=== PATIENT | female | born 1960 | race Caucasian/White ===

== ENCOUNTER 2025-06-29 14:27 | Emergency (ER) | payer OTHER ==
[~2025-06-29] VITALS: Ht 170.2 cm; Wt 75.0 kg
--- NOTE | 2025-06-29 14:34 | ECG ---
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
--- NOTE | 2025-06-29 15:19 | ED.PDOC ---
History of Present Illness HPI Comments This is a 64-year-old female with past medical history of hypothyroidism (Chay's) stroke (per patient, has been during partial hysterectomy, with no current residual deficits) brought to the hospital by EMS due to left shoulder pain started 6 hours back. Pain is localized at the back of left shoulder, radiating to the left side of chest, describes a sharp pain, 7/10 in intensity which worsened with taking deep breaths and moving her shoulder. She also reports of left arm numbness, dizziness and mild headache. She denies fever, shortness of breath, headache, blurry vision, or any recent trauma or sick contact. Social history: Denies alcohol or any other drug use Home medication: Levothyroxine 100 mEq Allergic history: Codeine, gadolinium and penicillins Chief Complaint: Chest Pain Time Seen by MD: 14:40 Reviewed Notes: Nurses Notes Allergies: Coded Allergies: Codeine (Verified Allergy, Unknown, 06/29/25) Gadolinium (Verified Allergy, Unknown, 06/29/25) Penicillins (Verified Allergy, Unknown, 06/29/25) Information Source: Patient Mode of Arrival: EMS Timing: Hours Duration: Since onset Past Medical History PAST MEDICAL HISTORY: CVA, Thyroid Surgical History: Surgical History (Other): Hysterectomy Family History Family History: Reviewed,noncontributory to illness, No family hx of Cancer, No family hx of DM, No family hx of Heart braeden, No family hx of HTN, No family hx ofKidney braeden, No family hx of Liver braeden, No family hx of Lung braeden, No family hx of Stroke Social History Smoker: Non-Smoker Alcohol: Denies ETOH Use Drugs: Denies Drug Use Constitutional: denies: chills, diaphoresis, fatigue, fever, malaise, sweats, weakness, others EENTM: denies: blurred vision, double vision, ear bleeding, ear discharge, ear drainage, ear pain, ear ringing, eye pain, eye redness, hearing loss, mouth pain, mouth swelling, nasal discharge, nose bleeding, nose congestion, nose pain, photophobia, tearing, throat pain, throat swelling, voice changes, others Respiratory: denies: cough, hemoptysis, orthopnea, SOB at rest, shortness of breath, SOB with excertion, stridor, wheezing, others Cardiovascular: reports: chest pain Gastrointestinal: denies: abdomen distended, abdominal pain, blood streaked bowels, constipated, diarrhea, dysphagia, difficulty swallowing, hematemesis, melena, nausea, poor appetite, poor fluid intake, rectal bleeding, rectal pain, vomiting, others Genitourinary: denies: abnormal vagina bleeding, burning, dyspareunia, dysuria, flank pain, frequency, hematuria, incontinence, pain, , vagina discharge, urgency, others Neurological: reports: dizziness; denies: fainting, headache, left sided numbness, left sided weakness, numbness, paresthesia, pre-existing deficit, right sided numbness, right sided weakness, seizure, speech problems, tingling, tremors, weakness, others Integumetry: denies: bruises, change in color, change in hair/nails, dryness, laceration, lesions, lumps, rash, wounds, others Allergic/Immunocompromised: denies: Difficulty Healing, Frequent Infections, Hives, Itching, others Hematologic/Lymphatic: denies: anemia, blood clots, easy bleeding, easy bruising, swollen glands, others Endocrine: denies: excessive hunger, excessive sweating, excessive thirst, excessive urination, flushing, intolerance to cold, intolerance to heat, unexplained weight gain, unexplained weight loss, others Psychiatric: denies: anxiety, bipolar disorder, depression, hopeless, panic disorder, schizophrenia, sleepless, suicidal, others Physical Exam General Appearance: No Apparent Distress, Normal HEENT: Normal ENT Inspection, Pharynx Normal, TMs Normal Neck: Full Range of Motion, Non-Tender, Normal, Normal Inspection Respiratory: Chest Non-Tender, Lungs Clear, No Accessory Muscle Use, No Respiratory Distress, Normal Breath Sounds Cardiovascular: No Edema, No JVD, No Murmur, No Gallop, Normal Peripheral Pulses, Regular Rate/Rhythm Breast Exam: Deferred Gastrointestinal: No Organomegaly, Non Tender, No Pulsatile Mass, Normal Bowel Sounds, Soft Genitalia: Deferred Pelvic: Deferred Rectal: Deferred Extremities: No calf tenderness, Normal capillary refill, Normal inspection, Normal range of motion, Non-tender, No pedal edema, Other (Left arm and left- sided chest tenderness) Neurologic: Alert, drying tunnel operator II-XII nml as Tested, No Motor Deficits, Normal Affect, Normal Mood, No Sensory Deficits Cerebellar Function: Normal Reflexes: Normal Skin: Dry, Normal Color, Warm Lymphatic: No Adenopathy Was a procedure done? Was a procedure done?: No EKG EKG : Comments Normal sinus rhythm with no significant ST or T-wave changes Differential Dx Considerations may include: Musculoskeletal Costochondritis Left shoulder rotator cuff tear Possible ACS X-Ray, Labs, Meds, VS Vital Signs Date Time Temp Pulse Resp B/P (MAP) Pulse Ox O2 Delivery O2 Flow Rate FiO2 06/29/25 19:35 98.1 78 16 122/69 (86) 98 98.1 06/29/25 19:35 78 16 98 Room Air 06/29/25 15:52 70 06/29/25 14:33 97.8 84 17 142/78 97 97.8 06/29/25 14:28 79 Lab Test 06/29/25 17:54 06/29/25 16:01 06/29/25 15:04 Range/Units White Blood Count 7.5 4.4-10.8 10^3/uL Red Blood Count 5.01 4.0-5.20 10^6/uL Hemoglobin 14.1 12.2-16.2 g/dL Hematocrit 41.1 36.0-46.0 % Mean Corpuscular Volume 82.1 80.0-100.0 fL Mean Corpuscular Hemoglobin 28.1 28.0-32.0 pg Mean Corpuscular Hemoglobin Concent 34.2 32.0-36.0 g/dL Red Cell Distribution Width 13.6 11.8-14.3 % Platelet Count 277 140-450 10^3/uL Mean Platelet Volume 8.3 6.9-10.8 fL Neutrophils (%) (Auto) 56.8 37.0-80.0 % Lymphocytes (%) (Auto) 33.6 10.0-50.0 % Monocytes (%) (Auto) 6.5 0.0-12.0 % Eosinophils (%) (Auto) 2.0 0.0-7.0 % Basophils (%) (Auto) 1.1 0.0-2.0 % Neutrophils # (Auto) 4.2 1.6-8.6 10 ^3/uL Lymphocytes # (Auto) 2.5 0.4-5.4 10 ^3/uL Monocytes # (Auto) 0.5 0-1.3 10 ^3/uL Eosinophils # (Auto) 0.1 0-0.8 10 ^3/uL Basophils # (Auto) 0.1 0-0.2 10 ^3/uL Nucleated Red Blood Cells 0.1 % Troponin I High Sensitivity < 3 L 4 < 3 L </=34 ng/L Sodium Level 135 L 136-145 mmol/L Potassium Level 4.4 3.5-5.1 mmol/L Chloride Level 102 98-107 mmol/L Carbon Dioxide Level 22 20-31 mmol/L Anion Gap 11 5-15 Blood Urea Nitrogen 19 9-23 mg/dL Creatinine 0.72 0.550-1.02 mg/dL Glomerular Filtration Rate Calc 94 >90 mL/min BUN/Creatinine Ratio 26.4 H 10.0-20.0 Serum Glucose 93 74-106 mg/dL Calcium Level 10.3 8.7-10.4 mg/dL Total Bilirubin 1.5 H 0.2-1.0 mg/dL Aspartate Amino Transferase (AST) 28 13-40 U/L Alanine Aminotransferase (ALT) 20 7-40 U/L Alkaline Phosphatase 82 46-116 U/L Total Protein 6.5 5.7-8.2 g/dL Albumin 4.5 3.2-4.8 g/dL Current Medications Medications (Trade) Dose Ordered Sig/Sangeetha Route Start Time Stop Time Status Last Admin Atorvastatin Calcium (Lipitor) 80 mg ONCE ONCE PO 06/29/25 17:45 06/29/25 17:57 DC 06/29/25 19:27 Acetaminophen/ Hydrocodone Bitart (Norman 5/325MG Tab) 1 tab ONCE ONCE PO 06/29/25 17:45 06/29/25 18:43 DC 06/29/25 19:27 Time of 1ST Reevaluation: 19:00 Reevaluation 1ST: Improved Time of 2ND Reevaluation: 20:30 Reevaluation 2ND: Resolved Patient Education/Counseling: Diagnosis, Treatment, Prognosis, Need For Follow Up, Other Family Education/Counseling: Diagnosis, Treatment, Prognosis, Need For Follow Up, Other Comments Patient was admitted for the chest pain, possibly due to costochondritis Patient was given Norman CBC was checked, normal CMP, check was normal Serial troponin was checked within normal limits Chest x-ray showed no significant intrathoracic abnormalities Serial EKGs performed, showed normal sinus rhythm with no significant ST or T- wave changes On subsequent patient's evaluation, patient was feeling better and had no chest pain or shortness of Breath Detailed discussion was performed with the patient's and patient's at the bedside, updated of the labs and EKG finding. Patient was consulted for possible requirement of further ischemic workup, which needs patient's admission, with the patient's and patient has been and insisted on outpatient follow up with PCP/and possible Cardiology. Patient discharged home. SEPSIS Sepsis Screen Date sepsis recognized/suspect: Jun 29, 2025 Time Sepsis recognized/suspect: 1434 Recent Procedure: No On Antibiotic Therapy: No Respiratory Rate >20: No Heart Rate >90: No Temp<36 C (96.8 F) or >38.3 C: No SBP <90 or MAP <65 mmHG: No New Acute Mental Status Change: No Is the patient on CPAP, BIPAP,: No Physician Orders Electrocardigram (06/29/25 14:33) Electrocardigram (06/29/25 15:33) Electrocardigram (06/29/25 17:33) Chest Xray 1 View (06/29/25 17:35) Vital Signs Date Time Temp Pulse Resp B/P (MAP) Pulse Ox O2 Delivery O2 Flow Rate FiO2 06/29/25 19:35 98.1 78 16 122/69 (86) 98 98.1 06/29/25 19:35 78 16 98 Room Air 06/29/25 15:52 70 06/29/25 14:33 97.8 84 17 142/78 97 97.8 06/29/25 14:28 79 Laboratory Tests Test 06/29/25 17:54 White Blood Count 7.5 10^3/uL (4.4-10.8) Medications Medications Dose Ordered Sig/Sangeetha Route Start Time Stop Time Status Last Admin Dose Admin Acetaminophen/ Hydrocodone Bitart 1 tab ONCE ONCE PO 06/29/25 17:45 06/29/25 18:43 DC 06/29/25 19:27 Atorvastatin Calcium 80 mg ONCE ONCE PO 06/29/25 17:45 06/29/25 17:57 DC 06/29/25 19:27 Departure 1 Departure Time of Disposition: 20:32 Impression: Primary Impression: Chest pain Additional Impression: Musculoskeletal chest pain Disposition: 01 HOME / SELF CARE / HOMELESS Condition: Good Critical Care Note Critical Care Time?: No Stability Stability form required: No Heart Score Heart Score: Heart Score Response (Comments) Value History Slightly Suspicious 0 EKG Normal 0 Age 45-64 1 Risk Factors No known risk factors 0 Troponin Normal limit 0 Total 1 FARSHAD BELLAMY Jun 29, 2025 15:19
--- NOTE | 2025-06-29 15:53 | ECG ---
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
[2025-06-29 18:13] LABS: Hematocrit 41.1 % (36.0-46.0); Hemoglobin 14.1 g/dL (12.2-16.2); Mean Corpuscular Hemoglobin 28.1 pg (28.0-32.0); Mean Corpuscular Volume 82.1 fL (80.0-100.0); Nucleated Red Blood Cells % 0.1 %
--- NOTE | 2025-06-29 18:14 | DVH ---
EXAM: XY CHEST XRAY 1 VIEW TECHNIQUE: Single frontal chest radiograph CLINICAL HISTORY: Pneumonia COMPARISON: None Findings/Impression: Frontal chest radiograph demonstrates no acute osseous or superficial soft tissue abnormalities. The trachea is midline. The cardiac silhouette and mediastinum are within normal limits. No pneumothorax, pleural effusions, or consolidations.
[2025-06-29 18:26] LABS: Alanine Aminotransferase 20 U/L (7-40); Albumin 4.5 g/dL (3.2-4.8); Alkaline Phosphatase 82 U/L (46-116); Anion Gap 11 (5-15); BUN/Creatinine Ratio 26.4 (10.0-20.0); Blood Urea Nitrogen 19 mg/dL (9-23); Calcium 10.3 mg/dL (8.7-10.4); Carbon Dioxide 22 mmol/L (20-31); Chloride 102 mmol/L (98-107); Glucose 93 mg/dL (74-106); Potassium 4.4 mmol/L (3.5-5.1); Total Protein 6.5 g/dL (5.7-8.2)
[2025-06-29 18:41] LABS: Bilirubin, Total 1.5 mg/dL (0.2-1.0); Sodium 135 mmol/L (136-145)
[2025-06-29] MEDS: HYDROcodone-ACET 5/325MG TAB PO ONE (19:27)
[2025-06-29] MEDS: ATORVASTATIN 20 MG TAB PO ONE (19:27)
[2025-06-29 19:35] VITALS: BP 122/69; PULSE 78; RESP 16; TEMP 98.1; O2SAT 98
== END 2025-06-29 20:28 | disposition home or self-care (01) ==
LOC: EDBD 14:27 → ER 14:27
DX: R07.89 Other chest pain (principal); M79.18 Myalgia, other site; R42 Dizziness and giddiness; E03.9 Hypothyroidism, unspecified; Z88.0 Allergy status to penicillin; Z88.5 Allergy status to narcotic agent; Z90.710 Acquired absence of both cervix and uterus; Z86.73 Personal history of transient ischemic attack (TIA), and cerebral infarction without residual deficits
CPT/HCPCS: 36415; 71045; 80053; 84484; 85025; 93005